=== PATIENT | female | born 1980 | race Caucasian/White ===

== ENCOUNTER 2017-01-10 15:29 | Emergency (ER) | payer BC ==
--- NOTE | 2017-01-10 15:47 | Emergency Department Record ---
History of Present Illness - General Chief complaint: complication Stated complaint: VAGINAL BLEEDING Time Seen by Provider: 01/10/17 15:40 Source: Patient Mode of Arrival: Ambulatory Limitations: No limitations - History of Present Illness Initial comments: 36 yo female presents with vaginal bleeding and passing a large clot. She is 9 weeks . This is her second . She has a history of a twins live births. She had cramping that is now improved. She did her OB intact at [place] last week and she saw an IUP. MD Complaint: Abdominal pain, Vaginal bleeding -: Minutes(s) Location: Abdomen Radiation: None Severity: Moderate Quality: Aching Consistency: Now resolved Improves with: None Worsens with: None Associated symptoms: Denies other symptoms No complications No complications - Related Data Home Medications Medication Instructions Recorded Confirmed Last Taken Pantoprazole Sodium [Protonix] 40 mg PO DAILY 01/10/17 01/10/17 Unknown Vit,Calc78/Iron/Folic 1 each PO DAILY 01/10/17 01/10/17 Unknown [Prenatabs FA Tablet] Allergies Allergy/AdvReac Type Severity Reaction Status Date / Time Sulfa (Sulfonamide Allergy HIVES Verified 01/10/17 15:46 Antibiotics) Review of Systems Constitutional: Denies: Chills, Fever, Malaise, Weakness Eyes: Denies: Eye discharge ENT: Denies: Congestion, Throat pain Respiratory: Denies: Cough, Dyspnea, Hemoptysis, Stridor, Wheezes Cardiovascular: Denies: Chest pain, Palpitations, Syncope Endocrine: Denies: Fatigue Gastrointestinal: Reports: As per HPI, Abdominal pain. Denies: Diarrhea, Nausea , Vomiting Genitourinary: Reports: As per HPI, Abnormal menses Musculoskeletal: Denies: Arthralgia, Back pain, Neck pain Skin: Denies: Bruising, Change in color, Lesions, Rash Neurological: Denies: Confusion Psychiatric: Denies: Anxiety Hematological/Lymphatic: Denies: Blood Clots, Easy bleeding, Easy bruising, Swollen glands Physical Exam - General General Appearance: Alert, Oriented x3, Cooperative, No acute distress Limitations: No limitations - Head Head exam: Normal inspection - Eye Eye exam: Normal appearance. negative: Conjunctival injection, Periorbital swelling - ENT ENT exam: Normal exam, Mucous membranes moist Ear exam: Normal external inspection Nasal Exam: Normal inspection Mouth exam: Normal external inspection Teeth exam: Normal inspection - Neck Neck exam: Normal inspection, Full ROM. negative: Tenderness - Respiratory Respiratory exam: Normal lung sounds bilaterally. negative: Respiratory distress - Cardiovascular Cardiovascular Exam: Regular rate, Normal rhythm, Normal heart sounds - GI/Abdominal GI/Abdominal exam: Soft. negative: Tenderness - Rectal Rectal exam: Deferred - exam: Vaginal bleeding (small amount of dark clot, no active bleeding), Other (closed cervix visualed). negative: Abnormal external exam, Adnexal mass (L), Adnexal mass (R), Adnexal tenderness (L), Adnexal tenderness (R), Cervical discharge, cervical motion tenderness, Vaginal discharge - Extremities Extremities exam: Normal inspection, Full ROM, Normal capillary refill. negative: Tenderness - Back Back exam: Reports: Normal inspection, Full ROM. Denies: Muscle spasm, Rash noted, Tenderness - Neurological Neurological exam: Alert, Normal gait, Oriented X3 - Psychiatric Psychiatric exam: Normal affect, Normal mood - Skin Skin exam: Dry, Intact, Normal color, Warm Course - Reevaluation(s) Reevaluation #1: A bedside US were preformed A single IUP with a HR of about 150 was identified and shown to the patient and . movement was observed. 01/10/17 17:01 The pension adviser OB for the patient was paged The patient is Rh+ 01/10/17 18:21 Awaiting call back The patient is resting comfortably. 01/10/17 18:46 I PEDRO PABLO Madden of OB We discussed the findings This patient is stable for DC and follow up the office 01/10/17 18:54 Medical Decision Making - Lab Data Result diagrams: 01/10/17 16:30 01/10/17 16:30 Disposition Disposition: Discharge Clinical Impression: Threatened Disposition: Home, Self-Care Return To Work/School Note Provided: Yes Condition: (1) Good Instructions: Threatened Miscarriage (ED) Additional Instructions: Call for closer follow up this week with your doctor Return or go to an ER if you have increased bleeding or pain. Rest off work tomorrow. Forms: Patient Portal Access Time of Disposition: 18:48 Quality - Quality Measures Quality Measures: N/A - Blood Pressure Screening Does Patient Have Any of the Following: No Blood Pressure Classification: Hypertensive Reading Systolic Measurement: 127 Diastolic Measurement: 94 Screening for High Blood Pressure: < Pre-Hypertensive BP, F/U Documented > [ [id number]] Pre-Hypertensive Follow-up Interventions: Referral to alternative/primary care provider.
[2017-01-10 17:02] LABS: BASO % 0.1 % (0-6); EOS % 0.5 % (0-6); GRAN % 78.2 % (47-80); HEMATOCRIT 34.1 % (35.0-47.0); HEMOGLOBIN 12.3 gm/dl (11.6-16.0); LYMPH % 15.8 % (16-45); MEAN CORPUSCULAR HEMOGLOBIN 29.6 pg (27-33); MEAN CORPUSCULAR HGB CONC 36.1 g/dl (32-36); MEAN PLATELET VOLUME 9.3 fl (7.4-10.4); MONO % 5.4 % (0-9); PLATELET COUNT 314 K/uL (130-400); RED BLOOD COUNT 4.16 M/uL (3.80-5.40); RED CELL DISTRIBUTION WIDTH 12.5 % (11.5-14.5)
[2017-01-10 17:03] LABS: URINE APPEARANCE CLEAR; URINE BILIRUBIN NEGATIVE (NEGATIVE); URINE BLOOD LARGE (NEGATIVE); URINE COLOR YELLOW; URINE GLUCOSE (UA) NEGATIVE (NEGATIVE); URINE KETONE 40 mg/dL (NEGATIVE); URINE LEUKOCYTE ESTERASE NEGATIVE (NEGATIVE); URINE NITRITE NEGATIVE (NEGATIVE); URINE PROTEIN TRACE (NEGATIVE); URINE UROBILINOGEN 0.2 E.U./dL (0.20 - 1.00)
[2017-01-10 17:12] LABS: URINE BACTERIA 1+; URINE RBC >50 (NONE SEEN)
[2017-01-10 17:22] LABS: BLOOD UREA NITROGEN 9 mg/dL (6-20); CREATININE 0.4 mg/dL (0.5-0.9); EST GLOMERULAR FILTRATION RATE > 60 mL/min; GLUCOSE,RANDOM 79 mg/dL (74-109)
[2017-01-10 17:30] LABS: TOTAL B-hCG 68968 mIU/mL
[2017-01-12 17:06] LABS: GC SPECIMEN TYPE Vaginal
== END 2017-01-10 19:08 | disposition home or self-care (01) ==
LOC: ER 15:29
DX: O20.0 Threatened abortion (principal); Z3A.09 9 weeks gestation of pregnancy
CPT/HCPCS: 99284 ×2; 85025; 84702; 80048; 81001; 86901; Q0111; 87210